=== PATIENT | male | born 1990 | race Caucasian/White ===

== ENCOUNTER 2018-01-27 04:26 | Emergency (ER) | payer OTHER ==
[~2018-01-27] VITALS: Ht 172.7 cm; Wt 72.6 kg
[2018-01-27 04:32] VITALS: BP 121/80; Ht 172.7 cm; Wt 72.6 kg
== END 2018-01-27 04:46 | disposition other institution (70) ==
LOC: ED 04:26
DX: Z02.89 Encounter for other administrative examinations (principal)